=== PATIENT | male | born 1975 | race Caucasian/White ===

== ENCOUNTER 2017-07-26 12:32 | Emergency (ER) | payer OTHER ==
[~2017-07-26] VITALS: Ht 177.8 cm; Wt 96.2 kg
[~2017-07-26 12:32] MED LIST: ALBU90OI INH; CHLGLU.12S MT; CLIN300 PO; HYDACE5 PO; IBUP800 PO; Kristalose20 GM PO; LORA1 PO; NAPR500 PO; NAPR550 PO; OMEP20ER PO; ONDA8ODT MM; OXYACE5T PO; PRED20 PO; PROM25 PO; Percocet 5-3251 EACH PO; RXCLIN PO; RXOXYACE PO; RXPROM25 PO; Robaxin500 MG PO; Voltaren100 GM TOP
[2017-07-26] MEDS ORDERED: CYCL10 PO (14:16)
[2017-07-26] MEDS ORDERED: IBUP600 PO (14:16)
[2017-07-26] MEDS ORDERED: Roxicodone5 MG PO (14:16)
[2017-07-26] MEDS ORDERED: METPRE4DP PO (14:16)
== END 2017-07-26 14:23 | disposition home or self-care (01) ==
LOC: ER 12:32
DX: M54.5 Low back pain (principal); F17.210 Nicotine dependence, cigarettes, uncomplicated; Z88.0 Allergy status to penicillin
CPT/HCPCS: 81000; 99283

== ENCOUNTER 2018-06-30 06:10 | Emergency (ER) | payer OTHER ==
[~2018-06-30] VITALS: Ht 177.8 cm; Wt 95.2 kg
[~2018-06-30 06:10] MED LIST changes: +CYCL10 PO; +IBUP600 PO; +METPRE4DP PO; +Roxicodone5 MG PO
[2018-06-30 07:12] LABS: Influenza A Positive (NEGATIVE); Influenza B Negative (NEGATIVE)
[2018-06-30] MEDS ORDERED: IBUP400 PO (08:08)
== END 2018-06-30 08:36 | disposition home or self-care (01) ==
LOC: ER 06:10
PROVIDERS: Emergency Medicine
DX: J10.1 Influenza due to other identified influenza virus with other respiratory manifestations (principal); Z88.0 Allergy status to penicillin; Z88.8 Allergy status to other drugs, medicaments and biological substances; Z79.899 Other long term (current) drug therapy
CPT/HCPCS: 36415; 71046; 87804; 94640; 96361; 96374; 99284-25; J1885; J7120

== ENCOUNTER 2020-07-29 16:23 | Emergency (ER) | payer OTHER ==
[~2020-07-29] VITALS: Ht 177.8 cm; Wt 88.5 kg
[~2020-07-29 16:23] MED LIST changes: +IBUP400 PO
== END 2020-07-29 17:54 | disposition home or self-care (01) ==
LOC: ER 16:23
DX: S69.91XA Unspecified injury of right wrist, hand and finger(s), initial encounter (principal); F17.200 Nicotine dependence, unspecified, uncomplicated; Z88.0 Allergy status to penicillin; Z88.6 Allergy status to analgesic agent; W22.8XXA Striking against or struck by other objects, initial encounter
CPT/HCPCS: 29125; 73130; 99283-25

== ENCOUNTER 2020-11-06 20:23 | Emergency (ER) | payer OTHER ==
[~2020-11-06] VITALS: Ht 177.8 cm; Wt 85.7 kg
== END 2020-11-06 22:02 | disposition left against medical advice (07) ==
LOC: ER 20:23
DX: S79.912A Unspecified injury of left hip, initial encounter (principal); Z53.21 Procedure and treatment not carried out due to patient leaving prior to being seen by health care provider; X58.XXXA Exposure to other specified factors, initial encounter
CPT/HCPCS: 73502; 99283-25

== ENCOUNTER 2022-10-15 12:45 | Emergency (ER) | payer OTHER ==
[~2022-10-15] VITALS: Ht 177.8 cm; Wt 97.5 kg
[~2022-10-15 12:45] MED LIST changes: +TRAM50 PO
[2022-10-15 13:07] VITALS: BP 153/96
[2022-10-15] MEDS ORDERED: Ultram50 MG PO (15:58)
== END 2022-10-15 16:00 | disposition home or self-care (01) ==
LOC: ER 12:45
DX: S82.141A Displaced bicondylar fracture of right tibia, initial encounter for closed fracture (principal); X58.XXXA Exposure to other specified factors, initial encounter; Z88.0 Allergy status to penicillin; Z88.8 Allergy status to other drugs, medicaments and biological substances; Z79.899 Other long term (current) drug therapy; F17.210 Nicotine dependence, cigarettes, uncomplicated
CPT/HCPCS: 29505; 73562-LT; 99283-25; A9270

== ENCOUNTER 2022-10-17 18:42 | Emergency (ER) | payer OTHER ==
[~2022-10-17] VITALS: Ht 177.8 cm; Wt 95.2 kg
[~2022-10-17 18:42] MED LIST changes: +Ultram50 MG PO
[2022-10-17 19:03] VITALS: BP 193/89
[2022-10-17] MEDS ORDERED: Roxicodone5 MG PO (20:18)
== END 2022-10-17 20:29 | disposition home or self-care (01) ==
LOC: ER 18:42
DX: S82.142D Displaced bicondylar fracture of left tibia, subsequent encounter for closed fracture with routine healing (principal); X58.XXXD Exposure to other specified factors, subsequent encounter; F17.200 Nicotine dependence, unspecified, uncomplicated; Z88.0 Allergy status to penicillin; Z88.6 Allergy status to analgesic agent; Z79.899 Other long term (current) drug therapy
CPT/HCPCS: 73700; 96372; 99283-25; A9270; J1885

== ENCOUNTER 2024-12-09 10:06 | Day surgery (SDC) | payer OTHER ==
[~2024-12-09] VITALS: Ht 177.8 cm; Wt 98.0 kg
[~2024-12-09 10:06] MED LIST changes: +EPINEPhrine HCl 1 MG / ML 30ML Vial ONE
[2024-12-09] MEDS ORDERED: Tranexamic Acid 100 ML IV ONE (10:14)
[2024-12-09] MEDS ORDERED: Midazolam HCl 1MG / ML 2ML Vial ONE (11:12)
[2024-12-09] MEDS ORDERED: FentaNYL Citrate 50 MCG/ML 2 ML Injection ONE ×3 (11:12→13:56)
[2024-12-09] MEDS ORDERED: Rocuronium Bromide 10 MG/ML 5ML Injection IV ONE (11:12)
[2024-12-09] MEDS ORDERED: Ondansetron HCl 2 MG / ML 2ML Vial ONE (11:42)
[2024-12-09] MEDS ORDERED: Dexamethasone Sod Phos 10 MG/ML 1ML VIAL ONE (11:42)
[2024-12-09] MEDS ORDERED: Lidocaine 1%-Epineph 1:200000 30 ML SDV INJ ONE ×2 (11:55)
[2024-12-09] MEDS ORDERED: EPINEPhrine HCl 1 MG / ML 30ML Vial ONE (12:40)
[2024-12-09] MEDS ORDERED: Labetalol HCL 5 MG/ML 4ML Injection (Single Dose) ONE (12:49)
[2024-12-09] MEDS ORDERED: HydrALAZINE HCl 20 MG / ML 1ML Vial ONE (13:13)
[2024-12-09] MEDS ORDERED: Sugammadex Sodium 200 MG/2ML SDV (100 MG/ML) ONE (13:23)
--- NOTE | 2024-12-09 14:22 | NUR ---
12/09/24 1422 Dk Hoang PT WAS RIVING IN PAIN. PAIN MEDICATION NOT BENEFICIAL. PT SUDDENLY STARTED TREMORING IS SEIZURE LIKE GESTURES. PT BECAME OBTUNDED AND NON RESPONSIVE. DR RODAS AT BEDSIDE. HEAD OF BED WAS LOWERED. 1420 PT STARTING RESPOND A LITTE BUT REAMINS CONFUSED.
[2024-12-09] MEDS ORDERED: HYDROmorphone HCl/Pf 1MG SYR ONE (14:28)
[2024-12-09] MEDS ORDERED: Diazepam 5 MG / ML 2ML SYR ONE (14:38)
[2024-12-09 15:18] VITALS: BP 178/104
== END 2024-12-10 14:50 | disposition other institution (70) ==
LOC: ORSCSDS 10:06
PROVIDERS: Otolaryngology
PROC: 09SL4ZZ Reposition Nasal Turbinate, Percutaneous Endoscopic Approach (ICD-10-PCS; principal; 2024-12-09 11:45)
PROC: 09DR4ZZ Extraction of Left Maxillary Sinus, Percutaneous Endoscopic Approach (ICD-10-PCS; principal; 2024-12-09 11:45)
PROC: 09DQ4ZZ Extraction of Right Maxillary Sinus, Percutaneous Endoscopic Approach (ICD-10-PCS; principal; 2024-12-09 11:45)
DX: J32.8 Other chronic sinusitis (principal); J34.2 Deviated nasal septum; J34.3 Hypertrophy of nasal turbinates; Z85.528 Personal history of other malignant neoplasm of kidney
CPT/HCPCS: 82947; 88305; C2625; J0165; J0360; J1100; J1171; J1953; J2250; J2405; J2704; J3010; J3360; J7120

== ENCOUNTER 2024-12-09 15:43 | Emergency (ER) | payer OTHER ==
[~2024-12-09] VITALS: Ht 177.8 cm; Wt 98.9 kg
[~2024-12-09 15:43] MED LIST changes: -EPINEPhrine HCl 1 MG / ML 30ML Vial ONE
[2024-12-09] MEDS ORDERED: Ondansetron HCl 2 MG / ML 2ML Vial IV ONE (16:00)
[2024-12-09] MEDS ORDERED: HYDROmorphone HCl/Pf 1MG SYR IV ONE (16:00)
[2024-12-09] MEDS ORDERED: Midazolam HCl 1MG / ML 2ML Vial IV ONE (16:50)
[2024-12-09 16:59] LABS: BASOPHILS ABSOLUTE AUTO 0.05 K/mm3 (0.00-0.23); BASOPHILS PERCENT AUTO 0 % (0-2); EOSINOPHILS ABSOLUTE AUTO 0.02 K/mm3 (0.00-0.68); EOSINOPHILS PERCENT AUTO 0 % (0-6); Hematocrit 40.4 % (37.0-53.0); Hemoglobin 13.8 g/dL (13.5-17.5); IMMATURE GRAN ABSOLUTE AUTO 0.23 K/mm3 (0.00-0.10); IMMATURE GRAN PERCENT AUTO 1 % (0-1); LYMPHOCYTES ABSOLUTE AUTO 1.69 K/mm3 (0.84-5.20); LYMPHOCYTES PERCENT AUTO 8 % (21-46); MONOCYTES ABSOLUTE AUTO 0.41 K/mm3 (0.16-1.47); MONOCYTES PERCENT AUTO 2 % (4-13); Mean Corpuscular HGB Conc 34.2 g/dL (31.5-36.5); Mean Corpuscular Volume 88 fL (80-100); NEUTROPHILS ABSOLUTE AUTO 19.39 K/mm3 (1.96-9.15); NEUTROPHILS PERCENT AUTO 89 % (41-73); NRBC ABSOLUTE 0.00 K/mm3 (0.00-0.02); NRBC Auto 0.0 /100 WBC (0.0-0.2); Platelet Count 333 K/mm3 (150-400); RDW Coefficient Variation 13.1 % (11.7-14.2); RDW Standard Deviation 42.1 fL (35.1-46.3)
[2024-12-09 17:30] LABS: Alanine Aminotransfer (ALT/SGP 68.0 U/L (12-78); Albumin, Blood 3.5 g/dL (3.4-5.0); Albumin/Globulin Ratio 1.2 (0.8-1.8); Anion Gap 8.0 mmol/L (3-11); Aspartate Aminotrans (AST/SGOT 22.0 U/L (12-37); Bilirubin, Total 0.6 mg/dL (0.1-1.0); Blood Urea Nitrogen 12.0 mg/dL (8-24); CO2, Blood 29.0 mmol/L (21-32); Calcium, Blood 8.3 mg/dL (8.5-10.1); Chloride, Blood 103.0 mmol/L (98-108); Creatinine, Blood 0.78 mg/dL (0.60-1.20); Globulin, Blood 2.9 g/dL (2.2-4.0); Glucose, Blood 154.0 mg/dL (70-99); Potassium, Blood 3.2 mmol/L (3.5-5.5); Sodium, Blood 137.0 mmol/L (136-145); Total Protein, Blood 6.4 g/dL (6.4-8.2)
[2024-12-09 19:00] VITALS: BP 145/84
== END 2024-12-09 19:40 | disposition home or self-care (01) ==
LOC: ER 15:43
PROVIDERS: Emergency Medicine
DX: G40.89 Other seizures (principal); F17.200 Nicotine dependence, unspecified, uncomplicated; Z98.890 Other specified postprocedural states; Z88.0 Allergy status to penicillin; Z88.6 Allergy status to analgesic agent; S81.801A Unspecified open wound, right lower leg, initial encounter; I10 Essential (primary) hypertension; F43.10 Post-traumatic stress disorder, unspecified; K21.9 Gastro-esophageal reflux disease without esophagitis; G47.33 Obstructive sleep apnea (adult) (pediatric); M79.605 Pain in left leg; Z79.84 Long term (current) use of oral hypoglycemic drugs; Z79.899 Other long term (current) drug therapy; X58.XXXA Exposure to other specified factors, initial encounter; Z79.2 Long term (current) use of antibiotics; Z88.8 Allergy status to other drugs, medicaments and biological substances
CPT/HCPCS: 80053; 85025; 93005; 93010; 96374; 96375; 99285-25; J1171; J2250; J2405